=== PATIENT | female | born 1995 | race American Indian/Alaskan Native ===

== ENCOUNTER 2021-12-22 23:56 | Emergency (ER) | payer SELFPAY ==
[2021-12-23] MEDS ORDERED: IBUPROFEN 600 MG TAB PO ONE (01:58)
--- NOTE | 2021-12-23 02:06 | Emergency Department Report ---
ED General Adult HPI - General Chief complaint: Dental/Oral Stated complaint: ;TOOTHACHE;EAR INFECTION Source: patient Mode of arrival: Ambulatory Limitations: No Limitations - History of Present Illness Initial comments: Patient is a A0 26-year-old -[place] female who is approximately 5 weeks gestation and who presents to the ED with complaint of acute onset persistent left maxillary premolar molar toothache with swollen gums and headache for the last 2 days. Patient states that she has been taking Tylenol with no relief. Patient denies dizziness, syncope, chest pain, shortness of breath, fever, chills, nausea and vomiting, abdominal pain, dysuria, urinary frequency and urgency, sore throat, vaginal bleeding or vaginal discharge. MD Complaint: Left maxillary premolar molar toothache; swollen gums and headache -: Sudden, days(s) (2) Location: mouth Radiation: non-radiation Severity scale (0 -10): 8 Quality: aching, sharp Consistency: constant Improves with: none Worsens with: none Associated Symptoms: denies other symptoms, headaches. denies: confusion, chest pain, cough, diaphoresis, fever/chills, loss of appetite, malaise, nausea/vomiting, rash, shortness of breath, syncope, weakness Treatments Prior to Arrival: none - Related Data Previous Rx's Medication Instructions Recorded Last Taken Type Acetaminophen with Codeine 1 each PO Q6HR PRN #12 tab 12/23/21 Unknown Rx [Acetaminophen-Codeine #2 TAB] Clindamycin [Clindamycin CAP] 300 mg PO Q8H #30 cap 12/23/21 Unknown Rx Ondansetron [Zofran Odt] 4 mg PO Q8HR PRN #15 tab.rapdis 12/23/21 Unknown Rx ED Review of Systems ROS: Stated complaint: ;TOOTHACHE;EAR INFECTION Other details as noted in HPI Constitutional: denies: chills, fever Eyes: denies: eye pain, eye discharge, vision change ENT: dental pain (Left maxillary premolar and molar toothache with swollen gums), other (Swollen left maxillary gingiva with pain). denies: ear pain, throat pain Respiratory: denies: cough, shortness of breath, wheezing Cardiovascular: denies: chest pain, palpitations Endocrine: no symptoms reported Gastrointestinal: denies: abdominal pain, nausea, vomiting, diarrhea Genitourinary: denies: urgency, dysuria, discharge Musculoskeletal: denies: back pain, joint swelling, arthralgia Skin: denies: rash, lesions Neurological: headache. denies: weakness, paresthesias Psychiatric: denies: anxiety, depression Hematological/Lymphatic: denies: easy bleeding, easy bruising ED Past Medical Hx - Medications Home Medications: Home Medications Medication Instructions Recorded Confirmed Last Taken Type Acetaminophen with Codeine 1 each PO Q6HR PRN #12 tab 12/23/21 Unknown Rx [Acetaminophen-Codeine #2 TAB] Clindamycin [Clindamycin CAP] 300 mg PO Q8H #30 cap 12/23/21 Unknown Rx Ondansetron [Zofran Odt] 4 mg PO Q8HR PRN #15 tab.rapdis 12/23/21 Unknown Rx ED Physical Exam - General Limitations: No Limitations General appearance: alert, in no apparent distress - Head Head exam: Present: atraumatic, normocephalic, normal inspection - Eye Eye exam: Present: normal appearance, PERRL, EOMI Pupils: Present: normal accommodation - ENT ENT exam: Present: mucous membranes moist, TM's normal bilaterally, normal external ear exam, other (Swollen, tender left maxillary gingiva with tender left maxillary premolar and molar teeth) - Neck Neck exam: Present: normal inspection. Absent: tenderness - Respiratory Respiratory exam: Present: normal lung sounds bilaterally. Absent: respiratory distress, wheezes, rales, rhonchi, chest wall tenderness, accessory muscle use, decreased breath sounds - Cardiovascular Cardiovascular Exam: Present: regular rate, normal rhythm, normal heart sounds. Absent: systolic murmur, diastolic murmur, rubs, gallop - GI/Abdominal GI/Abdominal exam: Present: soft, normal bowel sounds. Absent: tenderness, guarding, rebound, hyperactive bowel sounds, hypoactive bowel sounds, organomegaly - Extremities Exam Extremities exam: Present: normal inspection, full ROM, normal capillary refill - Back Exam Back exam: Present: normal inspection, full ROM. Absent: tenderness, CVA tenderness (R), CVA tenderness (L), muscle spasm, paraspinal tenderness, vertebral tenderness - Neurological Exam Neurological exam: Present: alert, oriented X3, CN II-XII intact, normal gait, reflexes normal - Psychiatric Psychiatric exam: Present: normal affect, normal mood - Skin Skin exam: Present: warm, dry, intact, normal color. Absent: rash ED Course Vital Signs 12/23/21 00:03 Temperature 99.7 F H Pulse Rate 90 Respiratory 18 Rate Blood Pressure 142/100 O2 Sat by Pulse 96 Oximetry ED Medical Decision Making - Medical Decision Making This is a A0 26-year-old -[place] female who is approximately 5 weeks gestation and who presents to the ED with complaint of acute onset persistent left maxillary premolar molar toothache with swollen gums and head ache for the last 2 days. Patient states that she has been taking Tylenol with no relief. In the ED, patient is alert and oriented x3 and is not in any distress. Patient was treated for pain in the ED and also given an antiemetics and started on oral antibiotics. Patient was observed momentarily in the ED for pain control. When pain was well controlled, patient will discharge home on pain medications and antibiotics and was advised to follow-up with her dentist in 7 to 10 days for reevaluation or return to the ED immediately if symptoms get worse. - Differential Diagnosis Dental abscess; acute gingivitis; dental caries Critical care attestation.: If time is entered above; I have spent that time in minutes in the direct care of this critically ill patient, excluding procedure time. ED Disposition Clinical Impression: Dental abscess, Acute gingivitis, Dental caries Disposition: HOME / SELF CARE / HOMELESS Is pt being admited?: No Does the pt Need Aspirin: No Condition: Stable Instructions: Dental Abscess, [id number], Dental Extraction, [id number], Dental Extraction, Care After, [id number], Trench Mouth Additional Instructions: Take medication with food, drink plenty of fluids, follow-up with your dentist or primary care physician in 7 to 10 days for reevaluation. Return to the ED immediately if symptoms get worse Prescriptions: Acetaminophen with Codeine [Acetaminophen-Codeine #2 TAB] 1 each PO Q6HR PRN #12 tab PRN Reason: Pain Clindamycin [Clindamycin CAP] 300 mg PO Q8H #30 cap Ondansetron [Zofran Odt] 4 mg PO Q8HR PRN #15 tab.rapdis PRN Reason: Nausea Referrals: JEREMY METZGER MD [Primary Care Provider] - 3-5 Days Time of Disposition: 02:12 Print Language: SLOVENIAN
[2021-12-23 03:21] VITALS: BP 136/83
[2021-12-23] MEDS ORDERED: ONDANSETRON 4 MG ODT TAB PO ONE (03:58)
[2021-12-23] MEDS ORDERED: AMOXICILLIN/K CLAV 875/125MG TAB PO ONE (03:58)
[2021-12-23] MEDS ORDERED: oxyCODONE /ACETAMINOPHEN 5-325MG TAB PO ONE (03:58)
== END 2021-12-23 03:21 | disposition home or self-care (01) ==
LOC: ED 23:56
DX: O26.891 Other specified pregnancy related conditions, first trimester (principal); K04.7 Periapical abscess without sinus; K02.9 Dental caries, unspecified; K05.00 Acute gingivitis, plaque induced; Z79.899 Other long term (current) drug therapy; Z3A.01 Less than 8 weeks gestation of pregnancy
CPT/HCPCS: 99282; J3490; Q0162